=== PATIENT | male | born 1995 | race Caucasian/White ===

== ENCOUNTER 2017-03-27 21:02 | Emergency (ER) | payer OTHER ==
[2017-03-27 21:19] VITALS: O2SAT 97
[2017-03-27] MEDS ORDERED: OXYCODONE/APAP 5/325 TAB PO ONE (21:33)
--- NOTE | 2017-03-27 21:37 | EDPHY ---
H & P Stated Complaint: right ankle injury Time Seen by Provider: 03/27/17 21:34 HPI/ROS: HPI: This is a 21-year-old male who presents with Chief Complaint: Right ankle injury Location: Right ankle Quality: Injury Duration: Prior to arrival Signs and Symptoms: No bleeding, no radiation, no numbness, no weakness, no tingling, + decreased range of motion, + swelling, + pain Timing: Acute Severity: 8 to 03/03 Context: Patient reports that he was climbing in [place] and accidentally slipped and fell approximately 5 feet directly on both feet onto the ground. He felt his right ankle buccal outward and then immediate constant pain that was worse with weight-bearing. He noted immediate swelling and is concerned he may have fractured his ankle. He denies any paresthesias/ numbness. Modifying Factors: He has not applied ice or taking any saus-tll-svelpya medications Comment: ROS: see HPI Constitutional: No fever, no chills, no weight loss Eyes: No blurred vision Respiratory: No shortness of breath, no cough Cardiovascular: No chest pain Gastrointestinal: No nausea, no vomiting no diarrhea Genitourinary: No dysuria Extremities: No myalgias Neurologic: No weakness, no numbness Skin: No rashes Hematologic: No bruising, no bleeding MEDICAL/SURGICAL/SOCIAL HISTORY: Medical history: Generally healthy. Does not take any regular medications. Surgical history: Left foot surgery at age 11 Social history: Student CONSTITUTIONAL: Pleasant young adult white male awake and alert, no obvious distress HEENT: Atraumatic and normocephalic. NECK: supple, no midline tenderness, flexion 45 degrees, extension 45 degrees, right and left lateral flexion 45 degrees. No meningismus. Cardiovascular: Normal S1/S2, regular rate, regular rhythm, without murmur rub or gallop. PULMONARY/CHEST: Symmetrical and nontender. no crepitus. Clear to auscultation bilaterally. Good air movement. No accessory muscle usage. ABDOMEN: Soft, nondistended, nontender, no ecchymosis. PELVIC: no pain with rocking; bilateral hips flexion 125 degrees, extension 30 degrees, with no pain internal rotation and no pain external rotation. BACK: No midline tenderness, no paraspinous spasm, deep tendon reflexes 2/2, no pain with straight leg raise EXTREMITIES: 2/2 pedal pulses, right Ankle; Plantar flexion to 50, dorsiflexion to 20. Foot inversion to 35 degree. No pain Anterior talofibular ligament. + pain Calcaneofibular ligament, + pain posterior talofibular ligament, + pain posterior inferior tibiofibular ligament. Achilles tendon intact. Able to wiggle all 5 toes which are warm to touch. No calf tenderness. no clubbing, no cyanosis or edema. NEUROLOGICAL: no focal neuro deficits. GCS 15. Light touch sensation intact. SKIN: Warm and dry, no erythema. no rash. Good capillary refill. Source: Patient Exam Limitations: No limitations - Medical/Surgical History Hx Asthma: No Hx Chronic Respiratory Disease: No Hx Diabetes: No Hx Cardiac Disease: No Hx Renal Disease: No Hx Cirrhosis: No Hx Alcoholism: No - Social History Smoking Status: Never smoked Constitutional: Initial Vital Signs Temperature (C) 37.2 C 03/27/17 21:18 Heart Rate 66 03/27/17 21:18 Respiratory Rate 20 03/27/17 21:18 Blood Pressure 117/74 03/27/17 21:18 O2 Sat (%) 97 03/27/17 21:18 O2 Delivery Mode Room Air Allergies/Adverse Reactions: No Known Allergies Allergy (Unverified 03/27/17 21:17) Home Medications: Medication Instructions Recorded NK [No Known Home Meds] 03/27/17 Medical Decision Making - Diagnostics Imaging Results: Imaging Impressions Ankle X-Ray 03/27/17 21:30 Impression: Lateral ankle sprain. No acute fracture. Procedures: Procedure: Splint placement. A right ankle stirrup splint was applied by the Emergency Room residential air sealing technician. After application of the splint I returned and re-examined the patient. The splint was adequately immobilizing the joint and distal to the splint the patient's circulation and sensation was intact. ED Course/Re-evaluation: Right ankle x-ray and medication ordered Given p.o. Percocet with adequate relief of pain No signs of neurovascular compromise/tenting of skin/compartment syndrome/ extremities and joints examined above and below area of concern and are neurovascularly intact. X-ray reviewed via PAC shows no fracture; dislocation Placed in ankle stirrup splint with crutches; toe-touch weight-bearing status initially Rice therapy Ortho follow-up Differential Diagnosis: Differential diagnosis includes but is not limited to fibular fracture, midfoot fracture, sprain, ligament injury, nerve injury. - Data Points Medications Given: Discontinued Medications Ibuprofen (Motrin) 800 mg PO EDNOW ONE Stop: 03/27/17 21:40 Last Admin: 03/27/17 21:40 Dose: 800 mg Departure - Departure Disposition: Home, Routine, Self-Care Clinical Impression: Grade 2 ankle sprain Qualifiers: Encounter type: initial encounter Laterality: right Qualified Code(s): S93.401A - Sprain of unspecified ligament of right ankle, initial encounter Condition: Good Instructions: Ankle Sprain (ED), Ankle Stirrup Splint (ED), RICE Therapy (ED) Additional Instructions: Wear ankle splint and use crutches with partial weight-bearing toe-touch initially until pain free for seen by Orthopedics for follow-up. Take ibuprofen 600-800 mg every 8 hours with food as needed for pain and inflammation. Apply ice for 30 minutes at a time; 2-3 times per day for the next 1-2 days. Follow up with Orthopedics in 7-10 days at which time they will evaluate and recommend with you if conservative management versus further diagnostic imaging is indicated. The x-rays obtained in the emergency department today demonstrate no evidence of an obvious fracture. Sometimes fractures are not obvious on the initial set of x-rays performed in the ED. For this reason, you should have repeat x-rays performed in 7-10 days if you are having any pain exclude the possibility of an occult fracture. Referrals: Ray Parker MD [Medical Doctor] - As per Instructions
[2017-03-27] MEDS ORDERED: IBUPROFEN 800 MG TAB PO ONE ×2 (21:39)
[2017-03-27 22:20] VITALS: BP 132/65; PULSE 71; RESP 16; TEMP 98.1
== END 2017-03-27 22:21 | disposition home or self-care (01) ==
DX: S93.401A Sprain of unspecified ligament of right ankle, initial encounter (principal); W01.0XXA Fall on same level from slipping, tripping and stumbling without subsequent striking against object, initial encounter; Y99.8 Other external cause status; Y93.39 Activity, other involving climbing, rappelling and jumping off
CPT/HCPCS: L4350